=== PATIENT | male | born 1990 | race African-American/Black ===

== ENCOUNTER 2019-04-28 10:16 | Emergency (ER) | payer SELFPAY ==
[2019-04-28 10:25] VITALS: Wt 72.7 kg
[2019-04-28] MEDS ORDERED: CLEOCIN HCL300 MG PO (10:48)
[2019-04-28 11:23] VITALS: BP 118/91
== END 2019-04-28 11:30 | disposition home or self-care (01) ==
LOC: D.ER 10:16
DX: S51.011A Laceration without foreign body of right elbow, initial encounter (principal); Y04.2XXA Assault by strike against or bumped into by another person, initial encounter; Y93.89 Activity, other specified; Y92.89 Other specified places as the place of occurrence of the external cause